=== PATIENT | female | born 1975 | race Caucasian/White ===

== ENCOUNTER 2020-01-26 01:20 | Outpatient (CLI) | payer MEDICAID, SELFPAY ==
--- NOTE | 2020-01-26 06:30 | DI.US_ITS ---
EXAM: US LOWER EXTREMITY VENOUS RT CLINICAL HISTORY: edema RLE,r60.0. TECHNIQUE: Right lower extremity venous ultrasound performed using grayscale, color-flow, and spectr al Doppler analysis. COMPARISON: No exams were available for comparison FINDINGS: The right common femoral, femoral and popliteal veins demonstrate normal compressibility, augmentatio n, and color Doppler. The posterior tibial veins are patent.The saphenofemoral junction is unremarkab le. There is a complex fluid collection in the anterior ankle corresponding to the area of injury. The area measures 3.2 x 1.1 x 2.6 cm. This likely reflects a hematoma. IMPRESSION: 1. No DVT. 2. 3.2 x 1.1 x 2.6 cm complex fluid collection in the soft tissues anterior to the ankle most suggest cha of a hematoma. DATA REPOSITORY:
== END 2020-01-26 01:40 ==
PROVIDERS: PCP Student in an Organized Health Care Education/Training Program; Visit Provider Nurse Practitioner
DX: R60.0 Localized edema (principal); S90.01XA Contusion of right ankle, initial encounter
CPT/HCPCS: 93971

== ENCOUNTER 2020-03-01 00:27 | Outpatient (CLI) | payer MEDICAID, SELFPAY ==
--- NOTE | 2020-03-01 07:15 | DI.RAD_ITS ---
EXAM: XR SACRUM COCCYX CLINICAL HISTORY: WORSENING PAIN; BM BRINGING ON PAIN,COCCYX PAIN, M53.3. TECHNIQUE: 2D digital imaging was performed. COMPARISON: No exams were available for comparison FINDINGS: BONES: No acute fracture is present. No bony destructive lesion is seen. There is deformity seen in t he coccygeal region, which appears chronic. JOINTS: No dislocation present. The sacroiliac joints are well maintained. No ankylosis or erosions are identified. SOFT TISSUE: Normal. IMPRESSION: Unremarkable radiographs of the sacrum and coccyx. DATA REPOSITORY: RADIATION DOSE DELIVERED:
== END 2020-03-01 00:47 ==
PROVIDERS: PCP Student in an Organized Health Care Education/Training Program; Visit Provider Student in an Organized Health Care Education/Training Program
DX: M53.3 Sacrococcygeal disorders, not elsewhere classified (principal)
CPT/HCPCS: 72220

== ENCOUNTER 2020-06-12 14:51 | Outpatient (CLI) | payer MEDICAID, SELFPAY ==
--- NOTE | 2020-06-12 11:00 | DI.RAD_ITS ---
EXAM: 2D digital imaging was performed. CLINICAL HISTORY: R/O small bowel obstruction, constipation, K59.00. COMPARISON: No exams were available for comparison TECHNIQUE: Supine and upright abdomen and PA chest views were performed. FINDINGS: BOWEL GAS PATTERN: Nondistended.No free air. There is a large amount of stool present, particularly in the ascending colon. CALCIFICATIONS: No radiopaque calcifications. OSSEOUS STRUCTURES: Normal for age. OTHER FINDINGS: Surgical clips are in the right upper quadrant likely reflecting prior cholecystectom y. LUNGS Clear. No pleural abnormality seen. HEART: Normal. MEDIASTINUM: Normal. OTHER FINDINGS: None. IMPRESSION: 1. Nonobstructive bowel gas pattern. 2. Large amount of retained stool particularly in the ascending colon. 3. No acute pulmonary process. DATA REPOSITORY: RADIATION DOSE DELIVERED:
== END 2020-06-12 15:11 ==
PROVIDERS: PCP Student in an Organized Health Care Education/Training Program; Visit Provider Family Medicine
DX: K59.00 Constipation, unspecified (principal)
CPT/HCPCS: 74022

== ENCOUNTER 2020-06-14 12:45 | Emergency (ER) | payer MEDICAID, SELFPAY ==
[2020-06-14 12:48] VITALS: BP 124/82; PULSE 75; RESP 16; TEMP 36.5; O2SAT 97
--- NOTE | 2020-06-14 13:00 | DI.CT_ITS ---
EXAM: CT ABDOMEN PELVIS W CLINICAL HISTORY: constipation/difficult to urinate, r/o SBO/mass TECHNIQUE: Imaging Protocol: Axial computed tomography images with coronal and sagittal reformatted images were created and reviewed CONTRAST MATERIAL: Intravenous: Omnipaque 350 Contrast volume:100 mL Oral: No COMPARISON: No exams were available for comparison FINDINGS: ABDOMEN: Lung Bases: Normal where visualized. Liver: Normal density. No measurable mass. Portal, Superior Mesenteric, and Splenic Veins: Unremarkable. Gallbladder and Biliary Tract: Status post cholecystectomy. No biliary ductal dilatation. Pancreas: Normal density, no abnormal calcifications or inflammatory process. Spleen: Normal. Adrenals: No masses seen. Kidneys: Normal size, contour and axis. No radiodense stones or obstructive uropathy. No masses seen. Abdominal Aorta: Abdominal portion non-dilated. Bowel: There is diverticulosis in the colon. There is bowel wall thickening seen in the proximal sig moid colon with surrounding inflammation. Finding is suggestive of acute diverticulitis. No evidenc e of bowel obstruction. Appendix is unremarkable. Small hiatal hernia. Peritoneal Cavity: A small amount of pelvic ascites. No focal fluid collection is seen to suggest an abscess. No free air. Lymph Nodes: Within normal limits. Bones: Mild degenerative changes. Soft Tissues: Unremarkable. PELVIS: Bladder: Symmetric distention, no gross wall thickening. Reproductive Organs: Unremarkable as visualized. Lymph Nodes: Within normal limits. Bones: Mild degenerative changes. IMPRESSION: 1. Findings most suggestive of acute diverticulitis of the sigmoid colon. If there is concern for un derlying abnormality, colonoscopy may be obtained following treatment. 2. No evidence of nephrolithiasis or hydronephrosis. 3. Status post cholecystectomy. No biliary ductal dilatation. 4. The findings were discussed with the emergency department on the date of the examination. RADIATION DOSE DELIVERED: 999.82mGy.cm Total DLP DATA REPOSITORY: All CT scans at this facility are submitted to the National Radiology Data Registry (NRDR) Dose Index Registry (DIR) with the [employer] ([employer]). RADIATION OPTIMIZATION: All CT scans at this facility use at least one of these dose optimization te chniques: automated exposure control; mA and/or kV adjustment per patient size (includes targeted exa ms where dose is matched to clinical indication); or iterative reconstruction.
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
[2020-06-14 13:15] VITALS: RESP 16
[2020-06-14] MEDS: Normal Saline Flush 10 ML SYR IVP (13:59)
[2020-06-14] MEDS: Normal Saline 1,000 ML 1000 ML IV (13:59)
[2020-06-14 14:11] LABS: Abs Immature Grans 0.03 10^3/uL (0.0-0.06); Absolute Basophil Count 0.04 10^3/uL (0.0-0.2); Absolute Eosinophil Count 0.37 10^3/uL (0.0-0.7); Absolute Monocyte Count 0.74 10^3/uL (0.1-0.8); Absolute Neutrophil Count 5.34 10^3/uL (1.2-6.7); Basophils % 0.4; Eosinophils % 4.1; HCT 41.4 % (36.0-46.0); HGB 13.4 g/dL (11.2-15.7); Immature Grans % 0.3; Lactate 0.6 mmol/L (0.6-1.4); Lymphocytes % 26.9; MCH 30.6 pg (27.0-33.0); MCHC 32.4 % (32.0-36.0); MCV 94.5 fL (80-95); MPV 11.5 fL (8.0-11.0); Monocytes % 8.3; Nucleated RBC 0 %; Platelet Count 225 10^3/uL (130-400); RBC 4.38 10^6/uL (3.93-5.22); RDW 12.4 % (11.7-14.6); RDW-SD 43.4 fL; WBC 8.92 10^3/uL (4.4-10.8)
[2020-06-14 14:15] LABS: Bilirubin Negative (Negative); Blood Negative (Negative); Clarity Clear (Clear); Glucose Negative (Negative); Ketones Negative (Negative); Leukocyte Esterase Negative (Negative); Nitrite Negative (Negative); Specific Gravity 1.015 (1.005-1.025); Urobilinogen 0.2 EU/dL (Up TO 0.2); pH 6.5 (5-8)
[2020-06-14 14:29] LABS: ALT 19 U/L (14-59); AST 17 U/L (15-37); Albumin 3.5 g/dL (3.4-5.0); Alkaline Phosphatase 96 U/L (46-116); BUN 7 mg/dL (7-18); Bilirubin, Total 0.3 mg/dL (0.2-1.0); CREATININE 0.67 mg/dL (0.55-1.02); Calcium 9.2 mg/dL (8.5-10.1); Chloride 105 mmol/L (98-107); Glucose 93 mg/dL (74-106); Potassium 4.1 mmol/L (3.5-5.1); Sodium 140 mmol/L (136-145)
[2020-06-14] MEDS: Omnipaque 350 MG/ML 100 ML BTL IJ (15:10)
[2020-06-14 15:18] VITALS: BP 104/68; PULSE 61; RESP 18; TEMP 36.3; O2SAT 97
[2020-06-14 15:35] VITALS: BP 124/79; PULSE 60; RESP 16; TEMP 36.4; O2SAT 95
[2020-06-14] MEDS: Ciprofloxacin 500 MG TAB PO (16:27)
[2020-06-14] MEDS: Ketorolac 30 MG/ML VIAL IVP (16:27)
[2020-06-14] MEDS: metroNIDAZOLE 500 MG TAB PO (16:28)
[2020-06-14 16:34] VITALS: BP 121/54; PULSE 60; RESP 16; TEMP 36.5; O2SAT 98
== END 2020-06-14 16:50 | disposition home or self-care (01) ==
PROVIDERS: Emergency Provider Physician Assistant; PCP Student in an Organized Health Care Education/Training Program
DX: K57.32 Diverticulitis of large intestine without perforation or abscess without bleeding (principal); R10.32 Left lower quadrant pain; M54.5 Low back pain; K59.00 Constipation, unspecified
CPT/HCPCS: 36415; 80053; 81025; 96361; 96374; 99285; 74177; 81003; 83605; 85025; J1885; J3490

== ENCOUNTER 2020-06-30 15:35 | Outpatient (REF) | payer MEDICAID, SELFPAY ==
--- NOTE | 2020-06-30 15:25 | PAPFT_PTH ---
PATIENT: Angelina Fernández LOC: [facility] U#:[id number] AGE/SX: 45/F ROOM: RE06/30/[address]: Carlos Loaiza MD : 1975 BED: DIS: 06/30/2020 SPEC #: [id number] RECD: 06/30/20 18:10 STATUS: JULIAN REQ #: [id number] NA: 06/30/20 15:[address]: Carlos Loaiza [facility] Cytology RECD BY: Disha Thurman ENTERED: 06/30/20 18:11 SP TYPE: PAPFT OTHR DR: Ellen Jensen, DO Tissues: 1 - CX/ENDOCX FOR PAP SMEARS Procedures: PAP THIN PREP/[facility] Screening HPV DNA PROBE Comments: [id number]
== END 2020-06-30 15:55 ==
LOC: LBN 15:35
PROVIDERS: PCP Student in an Organized Health Care Education/Training Program; Visit Provider Obstetrics & Gynecology
DX: Z12.4 Encounter for screening for malignant neoplasm of cervix (principal); Z11.51 Encounter for screening for human papillomavirus (HPV)
CPT/HCPCS: 88142; 87624

== ENCOUNTER 2020-07-11 03:24 | Outpatient (CLI) | payer MEDICAID, SELFPAY ==
--- NOTE | 2020-07-11 13:45 | DI.US_ITS ---
EXAM: US PELVIS TRANSVAGINAL CLINICAL HISTORY: Amenorrhea, N91.2 TECHNIQUE: Transabdominal and transvaginal imaging was performed using standard protocol. COMPARISON: CT CT ABDOMEN PELVIS W from 06/14/2020 FINDINGS: KIDNEYS: Kidneys are symmetric in size. No evidence of renal calculi. No evidence of hydronephrosis. No renal mass or cyst identified. UTERUS: Anteverted. 7.5 x 4.0 x 5.9 cm. Endometrium: 2 millimeters. Myometrium: 1.1 centimeter myometrial fibroid near the fundus. Cervix: Unremarkable. OVARIES: Right: Cyst or mass: None. Left: Cyst or mass: None. DOPPLER: Color: Symmetric and uniform flow to both ovaries. No hyperemia. Duplex: Normal ovarian arterial waveforms visualized. CUL-DE-SAC: Free fluid: None. IMPRESSION: 1. Small fibroid. 2. Unremarkable bilateral ovaries. DATA REPOSITORY:
== END 2020-07-11 03:44 ==
PROVIDERS: PCP Student in an Organized Health Care Education/Training Program; Visit Provider Obstetrics & Gynecology
DX: N91.2 Amenorrhea, unspecified (principal); D25.9 Leiomyoma of uterus, unspecified
CPT/HCPCS: 36415; 76830; 76856; 82670; 83001; 84443

== ENCOUNTER 2020-07-12 00:50 | Outpatient (CLI) | payer MEDICAID, SELFPAY ==
--- NOTE | 2020-07-12 10:24 | DI.RAD_ITS ---
EXAM: 2D digital imaging was performed. CLINICAL HISTORY: Evaluate for possible sigmoid stricture. COMPARISON: CT CT ABDOMEN PELVIS W from 06/14/2020 TECHNIQUE: Supine views of the abdomen performed. FINDINGS: Exam was performed as a physician allergist immunologist prior to barium enema. The enema was canceled in favor of a pelvic CT with rectal contrast. BOWEL GAS PATTERN: Nondistended. No visible stool. CALCIFICATIONS: No radiopaque calcifications. OSSEOUS STRUCTURES: Normal for age. OTHER FINDINGS: Surgical clips right upper quadrant. Visualized portions of the lung bases are clear. No organomegaly is appreciated. IMPRESSION: 1. Nonobstructive bowel gas pattern. 2. No radiopaque calculi. DATA REPOSITORY: RADIATION DOSE DELIVERED:
--- NOTE | 2020-07-12 10:53 | DI.CT_ITS ---
EXAM: CT PELVIC W CLINICAL HISTORY: Diverticulitis acute, K57.92. TECHNIQUE: Imaging Protocol: Axial computed tomography images with coronal and sagittal reformatted images were created and reviewed. CONTRAST MATERIAL: Intravenous: Omnipaque 350 Contrast volume:100 cc contrast route:IV - Rectal contrast: Yes Oral: no COMPARISON: CT CT ABDOMEN PELVIS W from 06/14/2020 FINDINGS: Bladder: Nearly empty. Bowel: There are multiple diverticula cyst noted along the descending and proximal sigmoid colon. Th ere is wall thickening of the lower of the proximal sigmoid colon which could indicate muscular hyper trophy. There is some narrowing of the lumen in this area. The previously noted inflammatory change s the surrounding fat have cleared. Normal appendix. No small bowel dilatation. Peritoneal cavity: No ascites, collection or mesenteric inflammatory response. Uterus and ovaries: Unremarkable. IMPRESSION: Diverticulosis of the lower descending and proximal sigmoid colon with muscular hypertrophy causing n arrowing of the luminal diameter. RADIATION DOSE DELIVERED: Total DLP DATA REPOSITORY: All CT scans at this facility are submitted to the National Radiology Data Registry (NRDR) Dose Index Registry (DIR) with the [employer] (ACR). RADIATION OPTIMIZATION: All CT scans at this facility use at least one of these dose optimization te chniques: automated exposure control; mA and/or kV adjustment per patient size (includes targeted exa ms where dose is matched to clinical indication); or iterative reconstruction.
[2020-07-12] MEDS: Omnipaque 350 MG/ML 100 ML BTL IJ (11:12)
[2020-07-12] MEDS: Normal Saline - Diluent 50 ML VIAL IV (11:13)
[2020-07-12] MEDS: Normal Saline Flush 10 ML SYR IVP (11:13)
== END 2020-07-12 01:10 ==
PROVIDERS: PCP Student in an Organized Health Care Education/Training Program; Visit Provider Surgery
DX: K57.30 Diverticulosis of large intestine without perforation or abscess without bleeding (principal)
CPT/HCPCS: 72193; 74018; J3490

== ENCOUNTER 2022-01-24 16:57 | Outpatient (REF) | payer MEDICAID, SELFPAY ==
[2022-01-26 13:45] LABS: COVID-19 RT-PCR UVMMC Result Negative (Negative)
== END 2022-01-24 16:58 | disposition home or self-care (01) ==
LOC: LBN 16:57
PROVIDERS: PCP Student in an Organized Health Care Education/Training Program; Visit Provider Student in an Organized Health Care Education/Training Program
DX: J02.9 Acute pharyngitis, unspecified (principal); R05.9 Cough, unspecified; Z20.822 Contact with and (suspected) exposure to COVID-19
CPT/HCPCS: U0003; 87070

== ENCOUNTER 2022-04-22 13:15 | Outpatient (CLI) | payer MEDICAID, SELFPAY ==
[2022-04-22 14:43] LABS: Abs Immature Grans 0.04 10^3/uL (0.0-0.06); Absolute Basophil Count 0.05 10^3/uL (0.0-0.2); Absolute Lymphocyte Count 2.44 10^3/uL (1.2-3.4); Absolute Neutrophil Count 10.02 10^3/uL (1.2-6.7); Basophils % 0.4; Eosinophils % 1.5; HCT 42.1 % (36.0-46.0); HGB 13.8 g/dL (11.2-15.7); Immature Grans % 0.3; MCH 30.7 pg (27.0-33.0); MCHC 32.8 % (32.0-36.0); MCV 94 fL (80-95); MPV 11.2 fL (8.0-11.0); Monocytes % 5.9; Neutrophils % 73.9; Platelet Count 260 10^3/uL (130-400); RDW 12.7 % (11.7-14.6); RDW-SD 43.8 fL; WBC 13.56 10^3/uL (4.4-10.8)
[2022-04-22 14:54] LABS: Anion Gap 10.3 mmol/L (3-11); BUN 18 mg/dL (7-18); CO2 26.7 mmol/L (21.0-32.0); CREATININE 0.9 mg/dL (0.55-1.02); Calcium 9.1 mg/dL (8.5-10.1); Chloride 103 mmol/L (98-107); Glucose 154 mg/dL (74-106); Sodium 140 mmol/L (136-145)
== END 2022-04-22 13:16 | disposition home or self-care (01) ==
LOC: LBO 13:17
PROVIDERS: PCP Student in an Organized Health Care Education/Training Program; Visit Provider Nurse Practitioner Adult Health
DX: K62.5 Hemorrhage of anus and rectum (principal)
CPT/HCPCS: 36415; 80048; 85025

== ENCOUNTER → 2022-04-26 17:01 | Outpatient (CLI) | payer MEDICAID, SELFPAY ==
--- NOTE | 2022-04-26 15:45 | DI.RAD_ITS ---
Exam(s) XR ABDOMEN FLAT UPRIGHT EXAM: 2D digital imaging was performed. CLINICAL HISTORY: ABD PAIN R10.9, R19.8, DIVERTICULOSIS K57.90, CONSTIPATION K59.00. COMPARISON: No exams were available for comparison TECHNIQUE: Supine and upright views of the abdomen was performed. Images were obtained. FINDINGS: LUNG BASES: Clear. BOWEL GAS PATTERN: Nondistended. There is a moderate amount of stool in the colon. FREE AIR: None. CALCIFICATIONS: No radiopaque calcifications. OSSEOUS STRUCTURES: Normal for age. OTHER FINDINGS: There are surgical clips in the right upper quadrant of the abdomen likely reflecting prior cholecystectomy. IMPRESSION: Moderate amount of retained stool. No evidence of obstruction. DATA REPOSITORY: RADIATION DOSE DELIVERED:
== END ==
PROVIDERS: PCP Student in an Organized Health Care Education/Training Program; Visit Provider Student in an Organized Health Care Education/Training Program
DX: R10.9 Unspecified abdominal pain (principal); K59.00 Constipation, unspecified; R19.8 Other specified symptoms and signs involving the digestive system and abdomen
CPT/HCPCS: 74019

== ENCOUNTER 2022-04-26 17:03 | Outpatient (CLI) | payer MEDICAID, SELFPAY ==
[2022-04-26 16:24] LABS: Abs Immature Grans 0.03 10^3/uL (0.0-0.06); Absolute Basophil Count 0.06 10^3/uL (0.0-0.2); Absolute Eosinophil Count 0.33 10^3/uL (0.0-0.7); Absolute Lymphocyte Count 2.99 10^3/uL (1.2-3.4); Absolute Monocyte Count 0.84 10^3/uL (0.1-0.8); Absolute Neutrophil Count 4.47 10^3/uL (1.2-6.7); Basophils % 0.7; Eosinophils % 3.8; HCT 37.7 % (36.0-46.0); HGB 12.5 g/dL (11.2-15.7); Immature Grans % 0.3; Lymphocytes % 34.3; MCH 30.7 pg (27.0-33.0); MCHC 33.2 % (32.0-36.0); MCV 93 fL (80-95); MPV 11.6 fL (8.0-11.0); Monocytes % 9.6; Neutrophils % 51.3; Platelet Count 267 10^3/uL (130-400); RBC 4.07 10^6/uL (3.93-5.22); RDW 12.5 % (11.7-14.6); RDW-SD 42.4 fL; WBC 8.72 10^3/uL (4.4-10.8)
[2022-04-26 16:50] LABS: ALT 25 U/L (14-59); AST 20 U/L (15-37); Albumin 3.7 g/dL (3.4-5.0); Alkaline Phosphatase 89 U/L (46-116); Anion Gap 8.7 mmol/L (3-11); BUN 18 mg/dL (7-18); Bilirubin, Total 0.2 mg/dL (0.2-1.0); CO2 26.3 mmol/L (21.0-32.0); CREATININE 0.8 mg/dL (0.55-1.02); Chloride 104 mmol/L (98-107); Glucose 103 mg/dL (74-106); Potassium 3.8 mmol/L (3.5-5.1); Sodium 139 mmol/L (136-145)
== END 2022-04-26 17:04 | disposition home or self-care (01) ==
LOC: LBO 17:03
PROVIDERS: PCP Student in an Organized Health Care Education/Training Program; Visit Provider Student in an Organized Health Care Education/Training Program
DX: D72.829 Elevated white blood cell count, unspecified (principal); K57.92 Diverticulitis of intestine, part unspecified, without perforation or abscess without bleeding; E86.0 Dehydration; R10.9 Unspecified abdominal pain
CPT/HCPCS: 36415; 80053; 85025

== ENCOUNTER 2022-05-20 08:20 | Emergency (ER) | payer MEDICAID, SELFPAY ==
[2022-05-20] VITALS (18 sets, daily range): BP systolic 119–144; BP diastolic 59–92; PULSE 53–80; RESP 16; TEMP 36.7; O2SAT 93–98
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
--- NOTE | 2022-05-20 09:00 | DI.CT_ITS ---
Exam(s) CT ABDOMEN PELVIS W EXAM: CT ABDOMEN PELVIS W CLINICAL HISTORY: LLQ pain, N/V, BRBPR. TECHNIQUE: Imaging Protocol: Axial computed tomography images with coronal and sagittal reformatted images were created and reviewed CONTRAST MATERIAL: Intravenous: Omnipaque 350 Contrast volume:100 ml Oral: yes / no COMPARISON: CT CT PELVIC W from 07/12/2020 FINDINGS: ABDOMEN: Lung Bases: Normal where visualized. Liver: Normal density. No measurable mass. Gallbladder and biliary tract: No radiodense calculus or dilation. Bowel: Small hiatal hernia. Stom ach and small bowel are otherwise unremarkable. Pancreas: Normal density, no abnormal calcifications or inflammatory process. Spleen: Normal. Kidneys: Normal size, contour and axis. No radiodense stones or obstructive uropathy. No masses seen. Adrenal glands: No masses seen. Abdominal Aorta: Abdominal portion non-dilated. PELVIS: Bladder: No gross wall thickening. No calculi.No focal mass. Bowel: Long segment of abnormally thickened: Extending from splenic flexure through sigmoid region. Appearance consistent with colitis. Very little fecal material. Numerous diverticula. No obstructi on. Appendix normal. Peritoneal cavity: No ascites, collection or mesenteric inflammatory response. Bones: Within normal limits for age. Reproductive organs: Within normal limits. Lymph nodes: Unremarkable. Impression: Colitis involving the descending and sigmoid colon. Extensive diverticulosis. Results of this exam have been verbally communicated with emergency department provider. RADIATION DOSE DELIVERED: 992.03mGy.cm Total DLP DATA REPOSITORY: All CT scans at this facility are submitted to the National Radiology Data Registry (NRDR) Dose Index Registry (DIR) with the [employer] (ACR). RADIATION OPTIMIZATION: All CT scans at this facility use at least one of these dose optimization te chniques: automated exposure control; mA and/or kV adjustment per patient size (includes targeted exa ms where dose is matched to clinical indication); or iterative reconstruction.
[2022-05-20 09:22] LABS: Abs Immature Grans 0.07 10^3/uL (0.0-0.06); Absolute Eosinophil Count 0.05 10^3/uL (0.0-0.7); Absolute Monocyte Count 0.74 10^3/uL (0.1-0.8); Basophils % 0.3; Eosinophils % 0.3; HCT 44.1 % (36.0-46.0); Immature Grans % 0.5; MCH 30.9 pg (27.0-33.0); MCV 91 fL (80-95); MPV 12.4 fL (8.0-11.0); Monocytes % 4.8; Neutrophils % 81.1; Platelet Count 261 10^3/uL (130-400); RBC 4.85 10^6/uL (3.93-5.22); RDW 12.3 % (11.7-14.6); WBC 15.42 10^3/uL (4.4-10.8)
[2022-05-20 09:23] LABS: Absolute Basophil Count 0.05 10^3/uL (0.0-0.2); Absolute Neutrophil Count 12.51 10^3/uL (1.2-6.7)
[2022-05-20] MEDS: Pantoprazole 40 MG VIAL IVP (09:25)
[2022-05-20] MEDS: Normal Saline 1,000 ML 1000 ML IV (09:25)
[2022-05-20] MEDS: Ondansetron 4 MG/2 ML VIAL IVP (09:25)
[2022-05-20 09:39] LABS: Bilirubin Negative (Negative); Blood Trace-intact (Negative); Clarity Clear (Clear); Glucose Negative (Negative); Ketones Negative (Negative); Leukocyte Esterase Negative (Negative); Nitrite Negative (Negative); Specific Gravity 1.025 (1.005-1.025); Urobilinogen 0.2 EU/dL (Up TO 0.2)
[2022-05-20 09:41] LABS: ALT 25 U/L (14-59); AST 23 U/L (15-37); Albumin 3.8 g/dL (3.4-5.0); Alkaline Phosphatase 99 U/L (46-116); Anion Gap 12.2 mmol/L (3-11); BUN 15 mg/dL (7-18); Bilirubin, Total 0.6 mg/dL (0.2-1.0); CO2 25.8 mmol/L (21.0-32.0); CREATININE 0.6 mg/dL (0.55-1.02); Calcium 9.5 mg/dL (8.5-10.1); Chloride 101 mmol/L (98-107); Glucose 117 mg/dL (74-106); Lipase 35 U/L (73-393); Potassium 4.1 mmol/L (3.5-5.1); Sodium 139 mmol/L (136-145); Total Protein 7.6 g/dL (6.4-8.2)
[2022-05-20 10:01] LABS: Bacteria Negative HPF (Negative); C & S Indicated? No; Casts Negative LPF (Negative); Crystals Negative HPF (Negative); Epithelial Cells Few HPF (Negative); Mucus Negative (Negative); RBC 0-2 HPF (0-2); WBC Negative HPF (0-5)
[2022-05-20] MEDS: Omnipaque 350 MG/ML 100 ML BTL IJ (10:40)
[2022-05-20] MEDS: Prochlorperazine 10 MG/2 ML VIAL IVP (12:10)
[2022-05-20] MEDS: diphenhydrAMINE 50 MG/ML VIAL 25 MG IVP (12:10)
[2022-05-20 13:00] LABS: C Diff PCR Negative (Negative)
== END 2022-05-20 12:22 | disposition home or self-care (01) ==
PROVIDERS: Emergency Provider Physician Assistant; PCP Student in an Organized Health Care Education/Training Program
DX: K52.89 Other specified noninfective gastroenteritis and colitis (principal); K62.5 Hemorrhage of anus and rectum; D72.829 Elevated white blood cell count, unspecified; K57.92 Diverticulitis of intestine, part unspecified, without perforation or abscess without bleeding
CPT/HCPCS: 36415; 80053; 83690; 87493; 96361; 96374; 96375; 74177; 81003; 81015; 83630; 83735; 85025; J0780; J1200; J2405; J3490

== ENCOUNTER 2022-05-28 03:22 | Outpatient (CLI) | payer MEDICAID, SELFPAY ==
[2022-05-28 11:19] LABS: Source Nasal/Nares
[2022-05-28 16:22] LABS: COVID-19 PCR Negative (Negative)
== END 2022-05-28 03:23 | disposition home or self-care (01) ==
PROVIDERS: PCP Student in an Organized Health Care Education/Training Program; Visit Provider Surgery
DX: Z20.822 Contact with and (suspected) exposure to COVID-19 (principal); Z01.818 Encounter for other preprocedural examination
CPT/HCPCS: 87635

== ENCOUNTER 2022-05-30 07:28 | Day surgery (SDC) | payer MEDICAID, SELFPAY ==
[2022-05-30 07:38] VITALS: BP 108/68; PULSE 52; RESP 17; TEMP 36.6; O2SAT 97
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
[2022-05-30 07:49] VITALS: BMI 31.6
[2022-05-30] MEDS: Lactated Ringers 1,000 ML 80 ML IV (08:01)
--- NOTE | 2022-05-30 08:11 | W.PM.DSUDISC ---
Discharge Plan Disposition Patient Disposition: HOME Condition: Good Discharge Details Reason For Visit: EGD and Colonoscopy Attending Provider: Yfn Milian Primary Care Provider: Ellen Jensen Home Meds and New Rx's Prescriptions: Continued acetaminophen [Tylenol Extra Strength] 500 mg tablet 1,000 mg PO BID PRN spironolactone 50 mg tablet 50 mg PO BID dextroamphetamine-amphetamine [Adderall XR] 15 mg capsule,extended release 24hr 15 mg PO DAILY MDD 25mg Qty: 28 0RF Rx Instructions: Take before work shifts, monitor closely for dose review. dextroamphetamine-amphetamine [Adderall XR] 5 mg capsule,extended release 24hr 5 mg PO DAILY MDD 20 PRN (Reason: extended work day) Qty: 28 0RF nicotine [Nicoderm CQ] 21 mg/24 hr patch 24 hour 1 patch transdermal Q24H Hold Instructions: Home Medication placed on hold at Doctor's office clindamycin-tretinoin 1.2-0.025 % gel 1 applic topical QHS PRN (Reason: acne) Qty: 30 1RF Hold Instructions: Formulary/Insurance Rx Instructions: Monitor for dryness, flaking chlorhexidine gluconate [Hibiclens] 4 % liquid 1 applic topical TID PRN Rx Instructions: 1/2 cup to warm water - soak affected toe TID until healed. esomeprazole magnesium [Nexium Packet] [address] for susp in packet 40 mg PO DAILY Qty: 30 3RF clindamycin phosphate 1 % gel, once daily 1 applic topical DAILY Qty: 75 1RF Rx Instructions: Use w/ tretinoin; monitor for dryness. tretinoin [Avita] 0.025 % gel 1 applic topical QHS PRN (Reason: cystic acne) Qty: 15 1RF ciprofloxacin HCl 500 mg tablet 500 mg PO BID Qty: 14 0RF Rx Instructions: Diverticulitis (#22021). HOLD ZOFRAN. metronidazole 500 mg tablet 500 mg PO Q8H Qty: 21 0RF Rx Instructions: Diverticulitis (#2, 2021) Discontinued bisacodyl [Dulcolax (bisacodyl)] 5 mg tablet,delayed release (DR/EC) 5 mg PO ONCE Qty: 4 0RF polyethylene glycol 3350 17 gram/dose powder 238 g PO ONCE Qty: 238 0RF Rx Instructions: Colonoscopy Bowel Prep- Per Instructions Discharge Instructions Additional Instructions: 1. If tolerated, consume a soft, low fiber diet for 1-2 days. [address] Do not drive, drink alcohol, operate machinery, make critical decisions, or do activities that require coordination or balance for 24 hours. 3. Because air was put into your colon during the procedure, expelling air from your rectum (passing gas or farting) is normal. 4. You may not have a bowel movement for 1-3 days because of the colonoscopy prep. This is normal. 5. You may experience a sore throat for 24 to 48 hours. You may use throat lozenges or gargle with warm salt water to relieve the discomfort. 6. Because air was put into your stomach during the procedure, you may experience some belching. 7. Go directly to the emergency room if you notice any of the following: Develop chills (warm to touch), or if you have a thermometer and your temperature is above 101 Difficulty breathing or difficultly swallowing Persistent vomiting Severe abdominal pain, other than gas cramps Severe chest pain Black, tarry stools Any bleeding ? exceeding one tablespoon 8. Call your physician if the site where your intravenous was started becomes red, swollen, painful, and warm to touch. 9. Your physician has reviewed your pre-procedure medications. Please continue to take those medications as previously ordered. You will be given specific information/education regarding any changes to your medications before leaving. Stand Alone Forms: Zeenat Chand (DSU) Activity:: Activity as Tolerated Diet:: follow instructions Discharge Orders Discharge Orders: Discharge Order (Routine); Ordered 05/30/22 Ordered By: Yfn Milian Discharge Data Discharge Comment: f/u primary care DS: Diagnosis Discharge Diagnosis (1) Diverticula of colon: Status: Acute Asessment and Plan: Colonoscopy showed [place] diverticulosis. There was a polyp at 25 cm and another at 40 cm (2) Hiatal hernia: Status: Chronic Asessment and Plan: No treatment is needed
--- NOTE | 2022-05-30 08:13 | W.COLOREPORT ---
Colonoscopy Report Date of procedure: 05/30/22 Pre-op diagnosis general: diverticulosis and gastritis Procedure: EGD and colonoscopy Surgeon: Yfn Milian Anesthesia Type: General:No Airway Estimated blood loss (mL): 20 Pathology: other (Rectal polyp at 25 cm, colon polyp at 40 cm) Complications: None Disposition: same day Indications: Angelina is a 47-year-old woman with a known history of diverticulosis, multiple episodes of diverticulitis. Recently, she experienced some bright red blood per rectum and hematochezia. We discussed diagnostic esophagogastroduodenoscopy and colonoscopy, and she provided informed consent. Prep: Miralax/Dulcolax Procedure Start Time: 08:34 Procedure End Time: 09:18 Retraction Time: 20 Findings: Small hiatal hernia, colon polyp around 40 cm, rectal polyp around 25 cm Procedure Description: After the initiation of monitored anesthetic care, and with the assistance of a bite block, I advanced a standard gastroscope through the mouth past the hypopharynx and into the esophagus.? Under the direct vision of the scope, I advanced down the esophagus into the stomach.? Once I entered the stomach, I performed a brief inspection, followed by retroflexion towards the gastric cardia.? This appeared normal.? After that, I gently advanced the scope around the incisura angularis and examined the pylorus.? This also appeared normal.? Next, I advanced the scope through the pylorus into the duodenum.? The mucosa was pink and healthy appearing.? There were no abnormalities.? I was able to visualize bile draining into the duodenum through the ampulla Vater. ?Next, I began retracting the endoscope.? Again, I returned to the stomach which was carefully examined once again.? I then gently desufflated some of the stomach, and withdrew the endoscope into the distal esophagus. There was a small to moderate sized hiatal hernia without any signs of inflammation or other pathology.. ?Finally, I withdrew the scope along the length of the esophagus taking great care to examine the entirety of the mucosa.? I did not appreciate any abnormalities. Next, we moved Angelina into the left lateral decubitus position, I began by performing an external anorectal exam.? Perineum and skin were normal, as was the anal verge.? There was no evidence of external hemorrhoids.? Next, I performed a digital rectal exam.? I did not appreciate any abnormal findings.? Next, I advanced a colonoscope into the rectal vault.? I performed retroflexion.? I did not see signs of pathologic internal hemorrhoids.? Using insufflation, I then advanced the colonoscope beyond the rectal folds and into the sigmoid colon before advancing towards the cecum.? The quality of the prep was good, there were some places of retained stool associated with extensive diverticulosis. There were numerous diverticula throughout the sigmoid colon. With tedious advancing, I was able to navigate the true lumen of the colon towards the splenic flexure. Taking great care, I continued to advance the scope along the transverse and ascending colons. There was pandiverticulosis here. The scope was noted to be in the cecum by identification of the ileocecal valve and appendiceal orifice.? I then began withdrawing the colonoscope using repeated irrigation as necessary for full evaluation of the colonic mucosa. ?There was a colonic polyp associated with a diverticula that I estimate to be 1 cm around 40 cm from the anal verge. I was able to remove this in its entirety with biopsy forceps once the scope was withdrawn to the level of the rectum, great care was taken to examine portions of the rectal folds.? During this evaluation, I noticed a polyp around 25 cm from the anal verge. I was able to remove this with a cold forceps. This was less than 1 cm. Finally, the scope was withdrawn and the patient was brought to the same-day surgery recovery unit as the anesthetic wore off. ?The findings and instructions were shared with the patient prior to discharge.
[2022-05-30 08:19] LABS: Abs Immature Grans 0.01 10^3/uL (0.0-0.06); Absolute Basophil Count 0.06 10^3/uL (0.0-0.2); Absolute Eosinophil Count 0.38 10^3/uL (0.0-0.7); Absolute Monocyte Count 0.61 10^3/uL (0.1-0.8); Absolute Neutrophil Count 4.23 10^3/uL (1.2-6.7); Basophils % 0.7; Eosinophils % 4.7; HCT 38.7 % (36.0-46.0); HGB 12.8 g/dL (11.2-15.7); Immature Grans % 0.1; Lymphocytes % 34.6; MCH 30.7 pg (27.0-33.0); MCHC 33.1 % (32.0-36.0); MCV 93 fL (80-95); MPV 11.1 fL (8.0-11.0); Monocytes % 7.5; Neutrophils % 52.4; Platelet Count 247 10^3/uL (130-400); RBC 4.17 10^6/uL (3.93-5.22); RDW 12.6 % (11.7-14.6); WBC 8.09 10^3/uL (4.4-10.8)
--- NOTE | 2022-05-30 08:50 | BOWEL_PTH ---
PATIENT: Angelina Fernández LOC: ANY U#:[id number] AGE/SX: 47/F ROOM: RE05/30/[address]: Yfn Milian MD : 1975 BED: DIS: 05/30/2022 SPEC #: [id number] RECD: 05/30/22 12:54 STATUS: JULIAN RE #: [id number] NA: 05/30/22 08:[address]: Yfn Milian DEPT: Surgical Specimen RECD BY: Disha Thurman ENTERED: 05/30/22 12:57 SP TYPE: Bowel OTHR DR: Ellen Jensen DO Tissues: 1 - BIOPSY BOWEL 2 - BIOPSY BOWEL Procedures: GROSS AND MICRO LEVEL 4 Comments: [id number]
[2022-05-30 09:24] VITALS: BP 132/98; PULSE 80; RESP 16; TEMP 36.5; O2SAT 97
[2022-05-30 09:53] VITALS: BP 137/84; PULSE 51; RESP 19; TEMP 36.6; O2SAT 100
--- NOTE | 2022-05-30 09:56 | W.ANESPOSTOP ---
Postoperative Evaluation Date, Time and Location Date Performed: 05/30/22 Time Performed: 09:56 Patient Location: Day Surgery Unit Vital Signs Most Recent Imported Vital Signs: Most Recent Vital Signs Temp Pulse Resp BP Pulse Ox 36.6 C 51 L 19 137/84 100 05/30/22 09:53 05/30/22 09:53 05/30/22 09:53 05/30/22 09:53 05/30/22 09:53 Pain Score Most Recent Pain Score: Most Recent Pain Score Pain Level 0 05/30/22 09:24 Assessment Mental Status: Awake (Alert & Oriented to Patient Baseline) Airway and Respiratory Function: Patent airway with normal (patient baseline) respiratory exam Cardiovascular Function: Hemodynamically Stable Hydration Status: Adequately Hydrated Nausea & Vomiting: No Nausea or Vomiting Pain: Pt. Denies Any Pain Peripheral Nerve Block: Patient did not receive a nerve block
== END 2022-05-30 10:54 | disposition home or self-care (01) ==
PROVIDERS: PCP Student in an Organized Health Care Education/Training Program; Visit Provider Surgery
PROC: (CPT 45380; principal; 2022-05-30 08:15)
DX: K62.5 Hemorrhage of anus and rectum (principal); K44.9 Diaphragmatic hernia without obstruction or gangrene; K63.5 Polyp of colon; K62.1 Rectal polyp; K57.30 Diverticulosis of large intestine without perforation or abscess without bleeding; K63.89 Other specified diseases of intestine
CPT/HCPCS: 45380; 43235; 81025; 88305; 85025; J2704

== ENCOUNTER → 2022-06-05 01:42 | Outpatient (CLI) | payer MEDICAID, SELFPAY ==
--- NOTE | 2022-06-05 12:45 | DI.MAMMO_ITS ---
Exam(s) MAMMO SCREENING EXAM: MAMMO SCREENING CLINICAL HISTORY: screening TECHNIQUE: Mammograms were interpreted according to the usual protocol including computer analysis w Neoprospecta CAD system, tomosynthesis and C-view imaging. COMPARISON: 2015 from [facility] FINDINGS: The breasts are composed of scattered fibroglandular densities, Breast Density category B. No suspicious masses or suspicious microcalcifications are seen. No skin thickening or abnormal axillary lymph nodes are seen. There has been no significant change from prior exams. IMPRESSION: BI-RADS Category 1, Negative mammogram Yearly screening mammography is recommended. Breast Density - Category B, scattered fibroglandular densities. A negative radiographic report should not delay biopsy if a dominant or clinically suspicious mass is present. Up to ten percent of cancers are not identified on mammography. A negative report may reinforce clinical impression. Adenosis and dense breasts may obscure an underlying neoplasm. False positive reports average 6 to 10%. Patient will receive a letter notifying them of these results.
== END ==
PROVIDERS: PCP Student in an Organized Health Care Education/Training Program; Visit Provider Nurse Practitioner Women's Health
DX: Z12.31 Encounter for screening mammogram for malignant neoplasm of breast (principal)
CPT/HCPCS: 77063; 77067

== ENCOUNTER → 2022-08-28 01:59 | Outpatient (CLI) | payer MEDICAID, SELFPAY ==
[2022-08-28] MEDS: Barium Sulfate 2% W/V-Berry Smoothie 450 ML BTL 900 ML PO (08:22)
[2022-08-28 08:35] LABS: Anion Gap 5.2 mmol/L (3-11); BUN 18 mg/dL (7-18); CO2 28.8 mmol/L (21.0-32.0); CREATININE 0.9 mg/dL (0.55-1.02); Calcium 9.2 mg/dL (8.5-10.1); Chloride 104 mmol/L (98-107); Estimated GFR 78.37 (mL/min/1.73m2); Glucose 89 mg/dL (74-106); Sodium 138 mmol/L (136-145)
[2022-08-28] MEDS: Omnipaque 350 MG/ML 500 ML BTL-Imaging package IJ (10:14)
[2022-08-28] MEDS: Normal Saline Flush 10 ML SYR IVP (10:15)
--- NOTE | 2022-08-28 10:16 | DI.CT_ITS ---
Exam(s) CT ABDOMEN PELVIS W EXAM: CT ABDOMEN PELVIS W INDICATION: evaluate for diverticulitis, abd pain, r10.9,z87.19,h/o diverticulitis. COMPARISON: CT CT ABDOMEN PELVIS W from 05/20/2022 TECHNIQUE: FINDINGS: CT examination of the abdomen and pelvis was performed with intravenous infusion of 100 cc of Omnipaq ue 350. There is a moderate-sized hiatal hernia. Images obtained through the lung bases are unremarkable. The liver is unremarkable in appearance. Gallbladder has been surgically removed, bile ducts are CT normal. Pancreas appears normal. Spleen is unremarkable in appearance. Adrenals appear normal. The kidneys are unremarkable with no evidence of hydronephrosis, nephrolithiasis, or renal mass.. Ur inary bladder unremarkable. Abdominal aorta is of normal diameter and no major vascular abnormality is seen. No abdominal wall hernia. No abdominal or pelvic adenopathy. [employer] structures appear intact. Appendix is normal. There are numerous colonic diverticuli. There is question of mild pericolonic f at edema associated with distal descending colon, possibility of mild acute diverticulitis is raised. No perforation or abscess formation seen, no evidence of bowel obstruction . IMPRESSION: Question subtle increased fat attenuation adjacent to distal descending colon, the findings may repre sent a mild uncomplicated diverticulitis. No other significant findings.. RADIATION DOSE DELIVERED: 1,047.1mGy.cm Total DLP 1,047.1mGy.cm Total DLP !Error CTDIvol RADIATION OPTIMIZATION: All CT scans at this facility use at least one of these dose optimization te chniques: automated exposure control; mA and/or kV adjustment per patient size (includes targeted exa ms where dose is matched to clinical indication); or iterative reconstruction.
== END ==
PROVIDERS: PCP Student in an Organized Health Care Education/Training Program; Visit Provider Student in an Organized Health Care Education/Training Program
DX: N28.9 Disorder of kidney and ureter, unspecified (principal); R10.9 Unspecified abdominal pain; Z87.19 Personal history of other diseases of the digestive system
CPT/HCPCS: 80048; 74177

== ENCOUNTER 2023-05-22 02:29 | Outpatient (CLI) | payer MEDICAID, SELFPAY ==
[2023-05-22 12:20] LABS: Abs Immature Grans 0.01 10^3/uL (0.0-0.06); Absolute Basophil Count 0.06 10^3/uL (0.0-0.2); Absolute Eosinophil Count 0.22 10^3/uL (0.0-0.7); Absolute Lymphocyte Count 2.92 10^3/uL (1.2-3.4); Absolute Monocyte Count 0.55 10^3/uL (0.1-0.8); Absolute Neutrophil Count 3.95 10^3/uL (1.2-6.7); Basophils % 0.8; Eosinophils % 2.9; HCT 40.7 % (36.0-46.0); HGB 13.7 g/dL (11.2-15.7); Immature Grans % 0.1; Lymphocytes % 37.9; MCH 30.7 pg (27.0-33.0); MCHC 33.7 % (32.0-36.0); MCV 91 fL (80-95); MPV 10.3 fL (8.0-11.0); Monocytes % 7.1; Neutrophils % 51.2; Platelet Count 259 10^3/uL (130-400); RBC 4.46 10^6/uL (3.93-5.22); RDW 11.9 % (11.7-14.6); RDW-SD 40.4 fL; WBC 7.71 10^3/uL (4.4-10.8)
[2023-05-22 12:59] LABS: ALT 18 U/L (14-59); AST 15 U/L (15-37); Albumin 3.8 g/dL (3.4-5.0); Alkaline Phosphatase 104 U/L (46-116); Anion Gap 7.9 mmol/L (3-11); BUN 18 mg/dL (7-18); Bilirubin, Total 0.4 mg/dL (0.2-1.0); CO2 28.1 mmol/L (21.0-32.0); CREATININE 0.8 mg/dL (0.55-1.02); Calcium 9.4 mg/dL (8.5-10.1); Chloride 106 mmol/L (98-107); Estimated GFR 89.71 (mL/min/1.73m2); Glucose 107 mg/dL (74-106); Potassium 4.1 mmol/L (3.5-5.1); Sodium 142 mmol/L (136-145); TSH (W/Ref FT4) 0.01 uIU/mL (0.36-3.74); Total Protein 7.3 g/dL (6.4-8.2)
[2023-05-22 13:23] LABS: FREE T4 1.04 ng/dL (0.76-1.46)
== END 2023-05-22 02:30 | disposition home or self-care (01) ==
LOC: LBO 02:30
PROVIDERS: PCP Student in an Organized Health Care Education/Training Program; Visit Provider Student in an Organized Health Care Education/Training Program
DX: K76.0 Fatty (change of) liver, not elsewhere classified (principal); Z91.89 Other specified personal risk factors, not elsewhere classified; K57.92 Diverticulitis of intestine, part unspecified, without perforation or abscess without bleeding; F41.9 Anxiety disorder, unspecified; R00.0 Tachycardia, unspecified; R53.83 Other fatigue; Z63.79 Other stressful life events affecting family and household; R73.03 Prediabetes; R19.4 Change in bowel habit; N28.9 Disorder of kidney and ureter, unspecified
CPT/HCPCS: 36415; 80053; 84439; 84443; 85025

== ENCOUNTER → 2023-09-02 01:14 | Outpatient (CLI) | payer MEDICAID, SELFPAY ==
--- NOTE | 2023-09-02 07:45 | DI.US_ITS ---
APPROVED REPORT EXAM: Comprehensive 2D, Doppler, and color-flow Echocardiogram Patient Location: Out-Patient Air Control/Anti Air Warfare Officer: Carisa Mckenna RDCS (AE) Indications: Evaluate Heart function, Family history of cardiomyopathy Other Information Study Quality: Adequate Conclusion Normal left ventricular wall thickness and chamber size. Ejection fraction is 55 to 60%. Wall motio n is normal Normal right ventricular size and systolic function Both atria are normal in size There is no structural or hemodynamically significant valvular disease Estimated right ventricular systolic pressure is 16 mmHg Wall motion Left Ventricle The left ventricle is normal size. The left ventricular systolic function is normal. The left ventric ular ejection fraction is within the normal range. There is normal left ventricular wall thickness. T here is normal LV segmental wall motion. There is no ventricular septal defect visualized. LVEF is 58 %. Right Ventricle The right ventricle is normal size. The right ventricular systolic function is normal. Atria The left atrium size is normal. The right atrium size is normal. The interatrial septum is intact wit h no evidence for an atrial septal defect. Aortic Valve The aortic valve is normal in structure. Aortic valve is trileaflet. There is no aortic valvular sten osis. No aortic regurgitation is present. Mitral Valve The mitral valve is normal in structure. No evidence of mitral valve stenosis. Trace mitral regurgita tion. Tricuspid Valve The tricuspid valve is normal in structure. There is no tricuspid valve stenosis. Trace tricuspid reg urgitation. The RVSP is 16.5 mmHg. Pulmonic Valve The pulmonary valve is normal in structure. There is no pulmonic valvular stenosis. There is no pulmo alayna valvular regurgitation. Great Vessels The aortic root is normal in size. The ascending aorta is normal in size. Aortic arch is normal in ca liber. IVC is normal in size and collapses >50% with inspiration. Pericardium There is no pericardial effusion. 2D Dimensions IVSD d PLAX 0.60 cm F: 0.6-1.0 Ao Root d 3.22 cm F: 2.7 - 3.3 LVPW d PLAX 0.62 cm F: 0.6 - 1.0 Ao Asc Diam d 2.91 cm F: 2.3 - 3.1 LVID d PLAX 4.87 cm F: 3.8 - 5.2 LVDs 3.38 cm F: 2.2 - 3.5 LV EF Teichholz 58.0 % FS 30.64 % LV EDV (Teich) 111.4 mL LV ESV (Teich) 46.8 mL M-Mode TAPSE 1.59 cm (M/F) >1.7 Auto EF LV EDV A4C 100.9 mL LV EDV A2C 100.9 mL LV EDV BP 105.2 mL LV ESV A4C 45.8 mL LV ESV A2C 40.0 mL LV ESV BP 44.0 mL LVEF(%) A4C 54.6 % LVEF(%) A2C 60.3 % LVEF(%) BP 58.2 % LV SV A4C 55.1 ml LV SV A2C 60.8 ml LV SV BP 61.2 ml LV CO A4C 2.8 L/min LV CO A2C 2.9 L/min LV CO BP 2.9 L/min HR A4C 50.49 BPM HR A2C 48.18 BPM LV EDV Index (BP) LV Strain Long Pk Overal Avg (s) 19.00 RV Strain Global Peak Long. Strain A4C 21.24 Global Peak Long. Strain A4C FW 25.22 LA Volume LA Length A4C 4.4 cm LA Length A2C 4.3 cm LA Area A4C s 14.49 cm2 LA Area A2C s 13.72 cm2 LA Vol A4C A-L 40.57 mL LA Vol A2C A-L 37.21 mL LA Vol Biplane A-L 39.3 mL LA Vol/BSA A4C A-L LA Vol/BSA A2C A-L LA Vol/BSA BP A-L 20.6 mL/m2 LA Vol A4C MOD 36.5 mL LA Vol A2C MOD 35.2 mL LA Vol BP MOD 36.1 mL RA Volume RA Area A4C 10.5 cm2 RA ESV A4C (A-L) 22.2mL RA Vol/BSA A4C A-L RA Length A4C 4.2 cm RA ESV A4C (MOD) 21.3mL LV Diastology MV E' medial 0.079 (>0.07 m/s) MV E Vmax 1.06 (0.4-1.3 m/s) MV E/E' MED 13.41 (<14) MV A Vmax 0.85 (0.4-1.3 m/s) MV E' lateral 0.123 (>0.1 m/s) E/A Ratio 1.2 MV E/E' LAT 8.64 (<14) MV E' Average 0.101 m/s MV E/E'(average) 10.51 Aortic Valve AoV Vmax 1.45 m/s LVOT Vmax 1.18 m/s AoV Peak Grad 8.4 mmHg LVOT Peak Grad 5.5 mmHg AoV Area (Vmax) 2.57 cm2 LVOT VTI 0.283 m AoV VTI 0.381 m LVOT Mean Grad 3.1 mmHg AoV Mean Jesus. 1.04 m/s LVOT SV 89.64 mL AoV Mean Grad 4.9 mmHg LVOT Diam s 2.00 cm AoV Area (VTI) 2.36 cm2 Velocity Ratio 0.81 Mitral Valve MV DT 189 (160-240 msec) MV Vmax TIPS 1.04 m/s MV Mean Grad 1.7 (<2mmHg) MV VTI 0.416 m Pulmonary Valve PV Vmax 0.90 (0.5-1.5 m/s) RVOT Vmax 0.59 m/s PV Peak Grad 3.3 mmHg RVOT Peak Gr. 1.4 mmHg PV Mean Jesus 0.62 m/s RVOT VTI 0.174 m PV Mean Grad 1.7 mmHg RVOT Mean Gr. 0.8 mmHg Tricuspid Valve RA Pressure 3.00 mmHg TR Vmax 1.84 m/s TV S' 0.10 m/s TR Peak Grad 13.5 mmHg RVSP (TR) 16.5 mmHg
== END ==
PROVIDERS: PCP Student in an Organized Health Care Education/Training Program; Visit Provider Student in an Organized Health Care Education/Training Program
DX: Z82.49 Family history of ischemic heart disease and other diseases of the circulatory system (principal); R93.1 Abnormal findings on diagnostic imaging of heart and coronary circulation
CPT/HCPCS: 93306

== ENCOUNTER → 2024-04-06 01:26 | Outpatient (CLI) | payer BC, SELFPAY ==
--- NOTE | 2024-04-06 06:45 | DI.US_ITS ---
Exam(s) US THYROID EXAM: US THYROID CLINICAL HISTORY: evaluate for inflammation; nodules, HYPERTHYROIDISM, HYPOTHYROIDISM. TECHNIQUE: Ultrasound thyroid performed using standard protocol. COMPARISON: No exams were available for comparison FINDINGS: Both thyroid lobes exhibit normal size and echotexture, as does the isthmus. There are no worrisome solid nodules. There is a single benign small colloid cyst in each lobe, both measuring 3-4 mm size. There is no significant adenopathy. A single benign 1.4 x 0.2 x 0.5 cm lymph node is noted on the le ft side. IMPRESSION: 1. There is a single small benign colloid cyst in each lobe. There are no concerning thyroid nodule s and the thyroid gland echotexture is otherwise normal. 2. The thyroid gland lobes and the isthmus exhibit normal size 3. There is no significant lymphadenopathy. DATA REPOSITORY:
[2024-04-06 19:14] LABS: Thyroglobulin Antibody <15 U/mL (<=60); Thyroperoxidase Antibody <28 U/mL (<=60)
[2024-04-12 20:59] LABS: Thyroid Stimulating Immunoglob 1.8 TSI index (<=1.3)
== END ==
PROVIDERS: PCP Student in an Organized Health Care Education/Training Program; Visit Provider Student in an Organized Health Care Education/Training Program
DX: E05.90 Thyrotoxicosis, unspecified without thyrotoxic crisis or storm (principal); E03.9 Hypothyroidism, unspecified; R00.2 Palpitations; E04.2 Nontoxic multinodular goiter
CPT/HCPCS: 36415; 86376; 76536; 84445

== ENCOUNTER 2024-06-24 03:38 | Outpatient (CLI) | payer BC, SELFPAY | END 2024-06-24 03:39 | disposition home or self-care (01) | LOC: LBO 03:38 | PROVIDERS: PCP Student in an Organized Health Care Education/Training Program; Visit Provider Student in an Organized Health Care Education/Training Program | DX: R79.89 Other specified abnormal findings of blood chemistry (principal) | CPT/HCPCS: 36415; 84235 ==

== ENCOUNTER 2025-04-27 00:26 | Outpatient (CLI) | payer BC, SELFPAY ==
--- NOTE | 2025-04-27 06:30 | DI.MRI_ITS ---
Exam(s) MR ABDOMEN WO/W EXAM: MR ABDOMEN WO/W CLINICAL HISTORY: abnormal CT,pancreatic mass,k86.89 TECHNIQUE: Multiplanar multisequence MRI of the Abdomen was performed. CONTRAST MATERIAL: IV Contrast: 15 mL of Dotarem contrast administered. COMPARISON: CT CT Abdomen and Pelvis w/ Contrast from 10/10/2024 FINDINGS: Lung bases: Lungs are clear. Small hiatal hernia. Liver: Unremarkable. Pancreas: Unremarkable. No evidence of pancreatic mass, cyst or inflammation. Gallbladder : Cholecystectomy. Biliary system: No dilated ducts. Pancreatic duct is nondilated. Adrenals: Unremarkable. Kidneys: Unremarkable. Spleen: Unremarkable. Aorta: Unremarkable. Soft Tissues: Unremarkable. Bone: Unremarkable. Lymph Nodes: Unremarkable. Stomach and bowel: Small hiatal hernia. Small bowel appears normal. Increased quantity of stool. Peritoneal cavity: Unremarkable. No evidence of ascites. IMPRESSION: No evidence of pancreatic mass. DATA REPOSITORY:
[2025-04-27] MEDS: Gadoterate meglumine 20 ML VIAL 15 ML IVP (08:07)
[2025-04-27] MEDS: Normal Saline - Diluent 50 ML VIAL 25 ML IJ (08:08)
== END 2025-04-27 00:46 ==
PROVIDERS: PCP Nurse Practitioner Adult Health; Visit Provider Nurse Practitioner Adult Health
DX: K86.89 Other specified diseases of pancreas (principal)
CPT/HCPCS: 74183

== ENCOUNTER 2025-05-19 11:58 | Outpatient (REF) | payer BC, SELFPAY ==
[2025-05-19 18:29] LABS: COVID-19 PCR Negative (Negative); RSV PCR Negative (Negative)
== END 2025-05-19 11:59 | disposition home or self-care (01) ==
LOC: LBN 11:58
PROVIDERS: PCP Student in an Organized Health Care Education/Training Program; Visit Provider Family Medicine
DX: J02.9 Acute pharyngitis, unspecified (principal); R05.9 Cough, unspecified; J34.89 Other specified disorders of nose and nasal sinuses
CPT/HCPCS: 87637

== ENCOUNTER 2025-06-21 09:32 | Outpatient (REF) | payer BC, SELFPAY ==
--- NOTE | 2025-06-21 09:20 | PAPFT_PTH ---
PATIENT: Angelina Fernández LOC: [facility] U#:[id number] AGE/SX: 50/F ROOM: RE06/21/[address]: Michelle Tadeo DO : 1975 BED: DIS: 06/21/2025 SPEC #: [id number] RECD: 06/21/25 12:36 STATUS: JULIAN REQ #: [id number] NA: 06/21/25 09:[address]: Michelle Tadeo [facility]PT[facility] Cytology RECD BY: Disha Thurman ENTERED: 06/21/25 12:36 SP TYPE: PAPFT OTHR DR: Ellen Jensen DO Tissues: 1 - CX/ENDOCX FOR PAP SMEARS Procedures: PAP THIN PREP/[facility] Screening HPV DNA PROBE Comments: [id number] (HPV 16 & 18/45)
[2025-06-21 12:29] LABS: Glucose Negative (Negative)
== END 2025-06-21 09:33 | disposition home or self-care (01) ==
LOC: LBN 09:32
PROVIDERS: Nurse Practitioner Adult Health; PCP Student in an Organized Health Care Education/Training Program; Visit Provider Obstetrics & Gynecology
DX: R30.0 Dysuria (principal); Z12.4 Encounter for screening for malignant neoplasm of cervix
CPT/HCPCS: 88142; 81003; 87624

== ENCOUNTER 2025-06-29 01:09 | Outpatient (CLI) | payer BC, SELFPAY ==
--- NOTE | 2025-06-29 08:30 | DI.MAMMO_ITS ---
Exam(s) MAMMO SCREENING EXAM: MAMMO SCREENING CLINICAL HISTORY: screening TECHNIQUE: Bilateral full field digital CC and MLO mammographic images were obtained with 3D tomosynthesis and utilizing computer aided detection (CAD). COMPARISON: Comparison is made with prior examinations. FINDINGS: Masses/Architectural Distortion: No suspicious masses or areas of architectural distortion are present. Microcalcifications: No suspicious pleomorphic-type are seen. Skin Thickening/Nipple Retraction: None. IMPRESSION: 1. No significant interval change with no specific features of malignancy noted. 2. Unless there is more urgent need, screening mammography is recommended, as per [employer] guidelines. BI-RADS Category 1 - Negative Breast Density - Category B - There are scattered areas of fibroglandular density. Breast density Category C or D implies that the patient has dense breast tissue. Dense breast tissue can make it harder to find cancer on a mammogram. Dense breast tissue is also associated with an increased risk of breast cancer. This information about the result of the mammogram report was provided to the patient to raise their awareness. Use this report when you speak with the patient about their risks for breast cancer, which includes their family history. At that time, you may recommend additional screening tests (Ultrasound or MRI) as these tests may add significant information. A negative radiographic report should not delay biopsy if a dominant or clinically suspicious mass is present. Up to ten percent of cancers are not identified on mammography. A negative report may reinforce clinical impression. Adenosis and dense breasts may obscure an underlying neoplasm. False positive reports average 6 to 10%. Patient will receive a letter notifying them of these results.
== END 2025-06-29 01:29 ==
LOC: DI 01:09
PROVIDERS: PCP Student in an Organized Health Care Education/Training Program; Visit Provider Obstetrics & Gynecology
DX: Z12.31 Encounter for screening mammogram for malignant neoplasm of breast (principal); R92.323 Mammographic fibroglandular density, bilateral breasts
CPT/HCPCS: 77063; 77067